=== PATIENT | female | born 1995 | race Caucasian/White ===

== ENCOUNTER 2022-03-24 20:26 | Inpatient (IN) | payer BC ==
[2022-03-24] MEDS ORDERED: Misoprostol 200 MCG Tab PO PRN (21:32)
[2022-03-24] MEDS ORDERED: Water For Irrigation,Sterile 1,000 ML Container IRR PRN (21:32)
[2022-03-24] MEDS ORDERED: Sodium Chloride 0.9% 2.5 ML Syringe FLUSH PRN (21:32)
[2022-03-24] MEDS ORDERED: Ampicillin 2 GM in Sodium Chloride 0.9% 100 ML IV ONE (21:32)
[2022-03-24] MEDS ORDERED: Tranexamic Acid 1,000 MG in Sodium Chloride 0.9% 100 ML IV PRN (21:32)
[2022-03-24] MEDS ORDERED: Sodium Chloride 0.9% 20 ML SDV IV PRN (21:32)
[2022-03-24] MEDS ORDERED: Lidocaine 1% 50 ML MDV INJECT PRN (21:32)
[2022-03-24] MEDS ORDERED: Methylergonovine 0.2 MG/1 ML Amp IM PRN (21:32)
[2022-03-24] MEDS ORDERED: Sodium Chloride 0.9% 10 ML Syringe FLUSH PRN (21:32)
[2022-03-24] MEDS ORDERED: Carboprost Tromethamine 250 MCG/1 ML Amp IM PRN (21:32)
[2022-03-24] MEDS ORDERED: Terbutaline 1 MG/ML SDV SUBCUT PRN (21:38)
[2022-03-24] MEDS ORDERED: Oxytocin/0.9 % Sodium Chloride 30 UNIT/500 ML BAG IV SCH ×2 (21:45)
[2022-03-24] MEDS: Lactated Ringers 1,000 ML IV SCH (21:51)
[2022-03-24] MEDS ORDERED: Misoprostol 25 MCG (1/4 of 100 MCG) Tab VAG PRN (22:00)
[2022-03-25] MEDS: Ampicillin 1 GM in Sodium Chloride 0.9% 50 ML IV SCH ×6 (02:10→22:19)
[2022-03-25] MEDS: Misoprostol 25 MCG (1/4 of 100 MCG) Tab VAG PRN ×2 (02:17→06:15)
[2022-03-25] MEDS: Lactated Ringers 1,000 ML IV SCH ×2 (04:50→04:51)
[2022-03-25] MEDS: Butorphanol 1 MG/ML SDV IVPUSH PRN ×2 (05:08→06:47)
[2022-03-25] MEDS: Ondansetron 4 MG/2 ML SDV IVPUSH PRN ×2 (08:25→23:16)
[2022-03-25] MEDS ORDERED: Phenylephrine 1% 10 MG/ML SDV IVPUSH PRN (08:50)
[2022-03-25] MEDS ORDERED: ePHEDrine 50 MG/ML SDV IVPUSH PRN ×2 (08:50)
[2022-03-25] MEDS ORDERED: Phenylephrine 1% 10 MG/ML SDV IVPUSH SCH (09:00)
[2022-03-25] MEDS ORDERED: Ropivacaine HCl/PF 400 MG in Premix Bag 1 BAG EPIDUR SCH (09:00)
[2022-03-25] MEDS ORDERED: Lactated Ringers 1,000 ML IV ONE (11:50)
[2022-03-26] MEDS: Ondansetron 4 MG/2 ML SDV IVPUSH PRN ×2 (01:17→13:28)
[2022-03-26] MEDS: Lactated Ringers 1,000 ML IV SCH (01:23)
[2022-03-26] MEDS ORDERED: Bupivacaine 0.5% 30 ML SDV ONE (01:29)
[2022-03-26] MEDS ORDERED: Ondansetron 4 MG/2 ML SDV ONE (01:30)
[2022-03-26] MEDS ORDERED: Citric Acid/Sodium Citrate Solution 30 ML Cup PO ONE (01:34)
[2022-03-26] MEDS ORDERED: ceFAZolin 2 GM in Premix Bag 1 BAG IV ONE (01:34)
[2022-03-26] MEDS ORDERED: ceFAZolin 2 GM Vial ONE (01:38)
[2022-03-26] MEDS ORDERED: Ropivacaine 0.5% 5 MG/ML 30 ML SDV ONE (01:39)
[2022-03-26] MEDS ORDERED: Morphine PF 10 MG/10 ML SDV ONE (01:40)
[2022-03-26] MEDS ORDERED: Dexamethasone 4 MG/ML 5 ML MDV ONE (01:40)
[2022-03-26] MEDS ORDERED: Oxytocin 10 Units/1 ML SDV ONE ×3 (02:05)
[2022-03-26] MEDS ORDERED: diphenhydrAMINE 50 MG/ML SDV IVPUSH PRN (02:09)
[2022-03-26] MEDS ORDERED: HYDROmorphone 2 MG/ML Syringe IVPUSH PRN (02:09)
[2022-03-26] MEDS ORDERED: Albuterol 0.083% 2.5 MG/3 ML Neb Soln NEB PRN (02:09)
[2022-03-26] MEDS ORDERED: ePHEDrine 50 MG/ML SDV IVPUSH PRN (02:09)
[2022-03-26] MEDS ORDERED: Morphine 2 MG/ML SYRINGE IVPUSH PRN (02:09)
[2022-03-26] MEDS ORDERED: Ondansetron 4 MG/2 ML SDV IVPUSH PRN ×2 (02:09)
[2022-03-26] MEDS ORDERED: fentaNYL 100 MCG/2 ML SDV IVPUSH PRN ×2 (02:09)
[2022-03-26] MEDS ORDERED: Naloxone 0.4 MG/ML SDV IVPUSH PRN (02:09)
[2022-03-26] MEDS ORDERED: Metoclopramide 10 MG/2 ML SDV IVPUSH PRN (02:09)
[2022-03-26] MEDS ORDERED: Phenylephrine HCl In 0.9% NaCl 1 MG/10 ML Vial IVPUSH SCH (02:15)
[2022-03-26] MEDS ORDERED: Ketorolac 30 MG/ML SDV ONE (02:37)
[2022-03-26] MEDS ORDERED: Misoprostol 200 MCG Tab RECTAL PRN (03:22)
[2022-03-26] MEDS ORDERED: Acetaminophen/oxyCODONE 325-5 MG Tab PO PRN ×2 (03:22)
[2022-03-26] MEDS ORDERED: Lanolin 100% Cream 7 GM Tube TOP PRN (03:22)
[2022-03-26] MEDS ORDERED: Bisacodyl 10 MG Supp RECTAL PRN (03:22)
[2022-03-26] MEDS ORDERED: Ketorolac 30 MG/ML SDV IVPUSH SCH ×2 (03:30→04:30)
[2022-03-26] MEDS ORDERED: Lactated Ringers 1,000 ML IV SCH (03:30)
[2022-03-26] MEDS: Acetaminophen 1,000 MG in Premix Bag 1 BAG IV PRN ×3 (08:37→21:02)
[2022-03-26] MEDS: Ketorolac 30 MG/ML SDV IVPUSH SCH ×3 (08:38→21:00)
[2022-03-26] MEDS: Docusate Sodium 100 MG Cap PO SCH ×2 (08:38→21:00)
[2022-03-27] MEDS: Ketorolac 30 MG/ML SDV IVPUSH SCH (03:34)
[2022-03-27] MEDS ORDERED: Acetaminophen 500 MG Tab PO PRN (07:17)
[2022-03-27] MEDS: Docusate Sodium 100 MG Cap PO SCH ×2 (09:34→22:05)
[2022-03-27] MEDS: Acetaminophen/oxyCODONE 325-5 MG Tab PO PRN ×2 (09:35→18:48)
[2022-03-27] MEDS: Ibuprofen 800 MG Tab PO PRN (16:47)
[2022-03-28] MEDS: Ibuprofen 800 MG Tab PO PRN ×3 (01:07→22:13)
[2022-03-28] MEDS: Docusate Sodium 100 MG Cap PO SCH ×2 (09:40→21:50)
[2022-03-28] MEDS: Acetaminophen/oxyCODONE 325-5 MG Tab PO PRN (16:38)
[2022-03-29] MEDS: Ibuprofen 800 MG Tab PO PRN (06:21)
[2022-03-29 08:26] VITALS: BP 136/79; PULSE 85
== END 2022-03-29 10:45 | disposition home or self-care (01) | DRG 540 ==
LOC: MW.OBCHECK 20:26 → MW.OB 20:27 → MW.OBCHECK 21:31 → MW.OB 21:32 → OBSVTOIN 03-26 02:10 → MW.OB 03-26 04:02
PROVIDERS: ADMIT Obstetrics & Gynecology; ATTEND Obstetrics & Gynecology
PROC: 10D00Z1 Extraction of Products of Conception, Low, Open Approach (ICD-10-PCS; principal; 2022-03-26)
PROC: 3E033VJ Introduction of Other Hormone into Peripheral Vein, Percutaneous Approach (ICD-10-PCS; 2022-03-26)
PROC: 3E0R3BZ Introduction of Anesthetic Agent into Spinal Canal, Percutaneous Approach (ICD-10-PCS; 2022-03-26)
PROC: 00HU33Z Insertion of Infusion Device into Spinal Canal, Percutaneous Approach (ICD-10-PCS; 2022-03-26)
DX: O36.63X0 Maternal care for excessive fetal growth, third trimester, not applicable or unspecified (principal); Z3A.39 39 weeks gestation of pregnancy; Z37.0 Single live birth; O99.344 Other mental disorders complicating childbirth; F41.9 Anxiety disorder, unspecified; F32.A Depression, unspecified; O76 Abnormality in fetal heart rate and rhythm complicating labor and delivery; Z20.822 Contact with and (suspected) exposure to COVID-19
CPT/HCPCS: 01967; 01968; 36415; 59025; 64488; 82803; 85025; 85027; 86592; 86850; 86900; 86901; A9270-GY; J0131; J0290; J0595; J0690; J1100; J1885; J2274; J2405; J2590; J2795; J3490; J7120; U0002